=== PATIENT | male | born 1990 | race Hispanic/Latino ===

== ENCOUNTER 2018-11-04 15:48 | Observation (INO) | payer SELFPAY ==
[2018-11-04 18:48] LABS: #Basophils 0.1 thou/uL (0.0-0.2); #Eosinphils 0.3 thou/uL (0.0-0.7); #Lymphocytes 2.8 thou/uL (1.20-3.40); #Monocytes 0.7 thou/uL (0.11-0.59); #Neutrophils 4.5 thou/uL (1.40-6.50); %Eosinophils 3.1 % (0.0-10.0); %Lymphocytes 33.5 % (21.0-51.0); %Neutrophils 54.4 % (42.0-75.0); Hemoglobin 16.3 g/dL (14.0-18.0); Mean Corpuscular HGB CONC 33.9 g/dL (32.0-36.0); Mean Corpuscular Hemoglobin 31.2 pg (27.0-31.0); Mean Corpuscular Volume 92.2 fL (78.0-98.0); Mean Platelet Volume 7.5 fL (7.4-10.4); Platelet Count 225 thou/uL (130-400); RBC Distribution Width 11.2 % (11.5-14.5); Red Blood Cell (RBC) Count 5.22 mill/uL (4.70-6.10); White Blood Cell (WBC) Count 8.3 thou/uL (4.8-10.8)
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
[2018-11-04 19:12] LABS: ALT (SGPT) 24 U/L (8-55); AST (SGOT) 16 U/L (5-34); Albumin 4.9 g/dL (3.5-5.0); Alkaline Phosphatase 90 U/L (40-150); Anion Gap 11 mmol/L (10-20); BUN (Urea Nitrogen) 18 mg/dL (8.9-20.6); Bilirubin, Total 0.3 mg/dL (0.2-1.2); CK (CPK) 136 U/L (30-200); Calc. Creatinine Clearance 0 mL/min (70-130); Calcium 9.4 mg/dL (7.8-10.44); Carbon Dioxide 25 mmol/L (22-29); Chloride 107 mmol/L (98-107); Estimated GFR-MDRD Greater than 90; Globulin 2.8 g/dL (2.4-3.5); Glucose 94 mg/dL (70-105); Potassium 4.2 mmol/L (3.5-5.1); Protein, Total 7.7 g/dL (6.0-8.3); Sodium 139 mmol/L (136-145)
[2018-11-04 19:16] LABS: CKMB 1.2 ng/mL (0-6.6)
[2018-11-04] MEDS ORDERED: Ondansetron PF 4 MG/2 ML Vial ONE (19:44)
[2018-11-04] MEDS ORDERED: Morphine 4 MG/ML VIAL ONE (19:44)
[2018-11-04 20:06] LABS: Bilirubin Negative (Negative); Blood, Urine Negative (Negative); Clarity CLEAR (Clear); Glucose, Urine (Dipstick) Negative (Negative); Leukocyte Negative (Negative); Nitrite Negative (Negative); Protein, Urine (Dipstick) Negative (Neg-Trace); Specific Gravity, Urine 1.027 (1.002-1.036)
[2018-11-04 21:12] VITALS: BMI 20.7
[2018-11-04] MEDS ORDERED: HYDROcodone/Acetaminophen 5/325 mg Tablet PO PRN ×2 (21:13)
[2018-11-04] MEDS ORDERED: Acetaminophen 325 MG TAB PO PRN (21:13)
[2018-11-04] MEDS ORDERED: Ondansetron ODT 4 MG TAB SL PRN (21:13)
[2018-11-04] MEDS ORDERED: Ondansetron PF 4 MG/2 ML Vial IVP PRN (21:13)
[2018-11-04] MEDS: Sodium Chloride 0.9% 1,000 ML IV SCH (22:00)
[2018-11-05] MEDS: Sodium Chloride 0.9% 1,000 ML IV SCH (06:25)
[2018-11-05] MEDS ORDERED: Loratadine 10 MG TAB PO PRN (07:45)
[2018-11-05] MEDS ORDERED: Sodium Chloride 0.9% 1,000 ML IV SCH (07:45)
[2018-11-05] MEDS ORDERED: Zolpidem Tartrate 5 MG TAB PO PRN (07:45)
[2018-11-05] MEDS ORDERED: Acetaminophen 325 MG TAB PO PRN (07:45)
[2018-11-05] MEDS ORDERED: hydrALAZINE 20 MG/ML VIAL SLOW IVP PRN (07:45)
[2018-11-05] MEDS ORDERED: Diabetic Tussin 200 MG/10 ML UDCUP PO PRN (07:45)
[2018-11-05] MEDS ORDERED: Artificial Tears 18 DROP/0.9 ML EA EYE PRN (07:45)
[2018-11-05] MEDS ORDERED: Eucerin (Mineral Oil/Petrolatum,White) 30 gm Jar TOP PRN (07:45)
[2018-11-05] MEDS ORDERED: Ondansetron PF 4 MG/2 ML Vial IVP PRN (07:45)
[2018-11-05] MEDS ORDERED: Calcium Carbonate 500 MG ChewTAB PO PRN (07:45)
[2018-11-05] MEDS ORDERED: Sodium Chloride 0.65% Nasal 44 ML BOT EA NARE PRN (07:45)
[2018-11-05] MEDS ORDERED: HYDROcodone/Acetaminophen 5/325 mg Tablet PO PRN (07:45)
[2018-11-05] MEDS ORDERED: Senokot S 8.6-50 MG TAB PO PRN (07:45)
[2018-11-05] MEDS ORDERED: Cepastat Lozenges 1 LOZ PO PRN (07:45)
[2018-11-05] MEDS ORDERED: Loperamide HCl 2 MG CAP PO PRN (07:45)
[2018-11-05] MEDS ORDERED: Bisacodyl 10 MG SUPP PR PRN (07:45)
[2018-11-05] MEDS ORDERED: Ondansetron ODT 4 MG TAB PO PRN (07:45)
[2018-11-05 08:00] VITALS: BP 100/48; TEMP 97.7
[2018-11-05] MEDS ORDERED: Famotidine 20 MG TAB PO SCH (09:00)
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
== END 2018-11-05 09:15 | disposition home or self-care (01) ==
LOC: ERS 15:48 → 2SW 21:01
PROVIDERS: ADMIT Family Medicine; ATTEND Family Medicine
DX: T75.00XA Unspecified effects of lightning, initial encounter (principal); F17.210 Nicotine dependence, cigarettes, uncomplicated
CPT/HCPCS: 71045; 80053; 81003; 82550; 82553; 84484; 85025; 93005; 96361; 96374; 96375; G0378; J2270; J2405